=== PATIENT | male | born 1965 | race American Indian/Alaskan Native ===

== ENCOUNTER 2021-05-17 10:31 | Outpatient (CLI) | payer OTHER ==
--- NOTE | 2021-05-17 12:31 | Cat Scan Report ---
CT sinuses wo con INDICATION / CLINICAL INFORMATION: 55 years Male; Z01.89 ENCOUNTER FOR OTHER SPECIALIZED EXAM. TECHNIQUE: Thin cut axial images obtained to the paranasal sinuses. Coronal and/or sagittal recons pe rformed. All CT scans at this location are performed using CT dose reduction for ALARA by means of a utomated exposure control. COMPARISON: None available. FINDINGS: FRONTAL sinuses: Frontal sinuses are essentially clear. Mild mucosal thickening seen near the frontal nasal passageway on the right. Frontal nasal passageway on the left is patent. MAXILLARY sinuses: Mild mucosal thickening seen bilaterally. Mucous retention cyst/polyp noted outside sales advertising executive iorly on the right. There is mild mucosal thickening along the infundibulum of both ostiomeatal units . ETHMOIDS: Mild to moderate mucosal thickening in the ethmoids. SPHENOID sinuses: The sphenoid sinuses are clear and the sphenoethmoidal recesses are patent. MASTOIDS: Mastoid air cells are essentially clear, as are the middle ear cavities. NASAL SEPTUM: Nasal septum deviation is seen-convexity towards the left anteriorly at the level the i nferior turbinate and towards the right more posteriorly at the level of middle turbinate. ADDITIONAL FINDINGS: Surrounding soft tissues are otherwise grossly normal. IMPRESSION: Mild sinus disease, as described above. No air-fluid levels appreciated. Signer Name: Baljinder Arita MD, III Signed: 05/17/2021 12:27 PM Workstation Name: [id number]
== END 2021-05-17 10:32 | disposition home or self-care (01) ==
LOC: SPVIMAG 10:31
PROVIDERS: ATTEND Internal Medicine
DX: Z01.89 Encounter for other specified special examinations (principal); J33.8 Other polyp of sinus; J34.2 Deviated nasal septum
CPT/HCPCS: 70486